=== PATIENT | male | born 1960 | race African-American/Black ===

== ENCOUNTER 2024-12-29 18:31 | Emergency (ER) | payer MEDICARE, MEDICAID ==
[~2024-12-29] VITALS: Ht 165.1 cm; Wt 68.0 kg
[~2024-12-29 18:31] MED LIST: METF-414
[2024-12-29 18:36] VITALS: BP 145/85; PULSE 85; RESP 16; TEMP 36.9; O2SAT 97
[2024-12-29] MEDS: FOLIC ACID/VITAMIN B COMP W-C TABLET PO SCH (18:45)
[2024-12-29] MEDS: SODIUM CHLORIDE 0.9% 1,000 ML IV ONE (18:57)
[2024-12-29] MEDS: THIAMINE HCL 100MG TABLET PO ONE (18:58)
[2024-12-29] MEDS: HALOPERIDOL LACTATE 5MG/ML VIAL IM ONE (19:44)
[2024-12-29 20:07] LABS: BASOPHILS % 1.2 % (0.0-2.0); EOSINOPHILS % 4.2 % (0.0-5.0); HEMATOCRIT. 38.9 % (42.0-52.0); HEMOGLOBIN. 12.6 g/dL (14.0-18.0); LYMPHOCYTES % 26.9 % (20.0-50.0); MEAN CORPUSCULAR HEMOGLOBIN 27.4 pg (28.0-32.0); MEAN CORPUSCULAR HGB CONC 32.3 g/dL (31.0-37.0); MEAN CORPUSCULAR VOLUME 84.8 fL (80.0-94.0); MEAN PLATELET VOLUME 7.2 fl (7.4-10.4); MONOCYTES % 6.7 % (2.0-8.0); PLATELET 285 x1000/uL (130-400); RED BLOOD CELL COUNT 4.58 mill/uL (4.7-6.1); RED CELL DISTRIBUTION WIDTH 14.9 % (11.6-14.6); WHITE BLOOD COUNT 4.9 x1000/uL (4.5-11.0)
[2024-12-29 20:13] LABS: CHLORIDE 106 mEq/L (98-107); POTASSIUM 4.2 mEq/L (3.5-5.1); SODIUM 144 mEq/L (136-145)
[2024-12-29 20:14] LABS: CARBON DIOXIDE 25 mEq/L (21-32)
[2024-12-29 20:15] LABS: CALCIUM 9.1 mg/dL (8.7-10.4)
[2024-12-29 20:19] LABS: CREATININE 0.9 mg/dL (0.6-1.3); GLUCOSE 145 mg/dL (70-105)
[2024-12-29 20:20] LABS: ETHANOL BLOOD 158 mg/dL (<10); UREA NITROGEN BLOOD 19 mg/dL (9-23)
[2024-12-29 20:21] LABS: ALANINE AMINOTRANSFERASE 9 IU/L (10-49); ALBUMIN 4.3 g/dL (3.2-4.8); ASPARTATE AMINOTRANSFERASE 19 IU/L (<34)
[2024-12-29 20:22] LABS: BILIRUBIN TOTAL 0.5 mg/dL (0.1-1.0); PROTEIN TOTAL 6.8 g/dL (6.0-8.3)
== END 2024-12-29 22:41 | disposition home or self-care (01) ==
LOC: ER 18:31
DX: F10.129 Alcohol abuse with intoxication, unspecified (principal); Z85.46 Personal history of malignant neoplasm of prostate; Y90.6 Blood alcohol level of 120-199 mg/100 ml
CPT/HCPCS: 80053; 80320; 83690; 85025; 36415; 96372; 99285; J1630; J7030; G0480